=== PATIENT | female | born 1970 | race Caucasian/White ===

== ENCOUNTER 2018-10-25 07:09 | Emergency (ER) | payer OTHER ==
--- NOTE | 2018-10-25 07:48 | UC ---
Elbow Pain - HPI Summary HPI Summary: 2 DAYS OF WORSENING LEFT ELBOW PAIN. DENIES ANY INJURY OR TRAUMA. HAS BEEN DOING YOGA OVER THE PAST FEW WEEKS. HAS NOT DONE ANY HEAVY LIFTING AND DENIES ANY REPETITIVE MOTION AT WORK. - History of Current Complaint Chief Complaint: UCUpperExtremity Stated Complaint: ELBOW PAIN Time Seen by Provider: 10/25/18 07:13 Hx Obtained From: Patient Onset/Duration: Days Severity Initially: Moderate Severity Currently: Moderate Pain Intensity: 8 Pain Scale Used: 0-10 Numeric Location Of Pain: Is Discrete @ - LEFT ELBOW Character: Sharp Aggravating Factor(s): Movement Alleviating Factor(s): Rest, Immobilization Associated Signs And Symptoms: Positive: Negative - Allergies/Home Medications Allergies/Adverse Reactions: Allergies Allergy/AdvReac Type Severity Reaction Status Date / Time No Known Allergies Allergy Verified 10/25/18 07:20 Home Medications: Home Medications Niacin 100 mg PO DAILY 10/25/18 [History Confirmed 10/25/18] Vitamin B Complex CAP* [B Complex CAP*] 1 cap PO DAILY 10/25/18 [History Confirmed 10/25/18] PMH/Surg Hx/FS Hx/Imm Hx Previously Healthy: Yes - Surgical History Surgical History: Yes Surgery Procedure, Year, and Place: HYSTERECTOMY 2007 AND 2009 - Family History Known Family History: Positive: Non-Contributory - Social History Alcohol Use: None Substance Use Type: None Smoking Status (MU): Never Smoked Tobacco Review of Systems All Other Systems Reviewed And Are Negative: Yes Constitutional: Positive: Negative Skin: Positive: Negative Respiratory: Positive: Negative Cardiovascular: Positive: Negative Gastrointestinal: Positive: Negative Musculoskeletal: Positive: Arthralgia, Decreased ROM Physical Exam Triage Information Reviewed: Yes Appearance: Well-Appearing, No Pain Distress, Well-Nourished Vital Signs: Initial Vital Signs Temp 98.2 F 10/25/18 07:15 Pulse 69 10/25/18 07:15 Resp 20 10/25/18 07:15 BP 183/100 10/25/18 07:15 Pulse Ox 97 10/25/18 07:15 Vital Signs Reviewed: Yes Eyes: Positive: Conjunctiva Clear ENT: Positive: Hearing grossly normal Neck: Positive: Supple Respiratory: Positive: No respiratory distress, No accessory muscle use Cardiovascular: Positive: Pulses Normal Abdomen Description: Positive: Soft Musculoskeletal: Positive: No Edema, ROM Limited @ - LEFT ELBOW, Other: - EXQUISITELY TTP LEFT LATERAL EPICONDYLE Neurological: Positive: Alert Psychological: Positive: Age Appropriate Behavior Skin: Negative: Rashes Diagnostics - Radiology LEFT ELBOW XRAYS Radiology Interpretation Completed By: Radiologist Summary of Radiographic Findings: Lateral epicondylitis with calcific tendinopathy at the common extensor tendon origin Elbow Pain Course/Dx - Differential Dx/Diagnosis Provider Diagnosis: Lateral epicondylitis, left elbow Discharge ED - Sign-Out/Discharge Documenting (check all that apply): Patient Departure All imaging exams completed and their final reports reviewed: Yes - Discharge Plan Condition: Stable Disposition: HOME Prescriptions: Cyclobenzaprine TAB* [Flexeril TAB*] 10 mg PO BID PRN #30 tab PRN Reason: Pain Meloxicam [Mobic] 7.5 mg PO BID PRN #30 tab PRN Reason: Pain predniSONE TAB* [Deltasone 20 MG TAB*] 40 mg PO DAILY #10 tab Patient Education Materials: Tennis Elbow (ED) Referrals: Adriana Solorzano NP [Primary Care Provider] - If Needed Carlos A Slaughter MD [Medical Doctor] - 2 Weeks Additional Instructions: X-RAYS TODAY SHOW CHANGES CONSISTENT WITH LATERAL EPICONDYLITIS (TENNIS ELBOW) WITH SOME CALCIFICATIONS. GET A COUNTERFORCE BRACE AND REST YOUR ARM MUCH POSSIBLE. FOLLOW-UP WITH ORTHO TO DISCUSS FURTHER TREATMENT OPTIONS. TENNIS ELBOW/GOLFER'S ELBOW What is elbow tendinopathy? Elbow tendinopathy is a condition that causes elbow pain and forearm weakness. Doctors use the term "elbow tendinopathy" when people have a problem with a tendon in the elbow. Tendons are strong bands of tissue that connect muscles to bones. Depending on which elbow tendon is injured , the condition is also known as "tennis elbow" or "golf elbow." In most people with elbow tendinopathy, the tendons are not inflamed or swollen. If they do get inflamed or swollen, doctors call it "tendinitis." Tendinitis usually starts suddenly. Tendinopathy usually happens over a longer period of time. What causes elbow tendinopathy? This condition can happen as people get older , especially if they do a lot of work or activity using their elbow and forearm. Tendinitis can happen when people get hurt or do the same movements over and over. What are the symptoms of elbow tendinopathy? The most common symptoms are: -Elbow pain The pain can start slowly or suddenly. It can spread to the upper arm or forearm. -Weakness of the forearm muscles -Swelling (if people have tendinitis) Is there a test for elbow tendinopathy? No. But your doctor or nurse should be able to tell if you have it by talking with you and doing an exam. How is elbow tendinopathy treated? Most of the time, this condition will get better on its own, but it can take months to heal completely. To help get better , you can: -Rest your elbow and arm - Ask your doctor about wearing an arm brace. -Take a pain-relieving medicine - Your doctor might recommend that you take a medicine such as acetaminophen (sample brand name: Tylenol), ibuprofen (sample brand names: Advil, Motrin), or naproxen (sample brand names: Aleve, Naprosyn). Is there anything I can do on my own to feel better? Yes. You can do different exercises to help with your symptoms. The right exercises for you will depend on which elbow tendon is injured. The following exercises can help stretch the lower arm muscles: -Tennis elbow stretch Hold your injured arm straight out, and point your fingers down to the ground. Use your other hand (with the thumb pressing on the palm) to grab this hand. Then press down on the back of the hand to bend the wrist more (picture 1). Hold this position for 30 seconds. Repeat the stretch 3 times. Do this exercise 1 time a day. -Golf elbow stretch Stand an arm's length away from the wall, with the injured arm closest to the wall. Put your palm on the wall, with your fingers pointing down. Press gently against the wall to stretch your muscles. Hold this position for 30 seconds. Repeat the stretch 3 times. Do this exercise 1 time a day. Other types of exercises can help make the forearm muscles stronger. Your doctor , nurse, or physical therapist (exercise expert) can show you how to do these types of exercises. He or she will tell you when to start them and how often to do them. What if my symptoms don't get better? If your symptoms don't get better, talk with your doctor or nurse. He or she can suggest other treatments, such as physical therapy or a shot of medicine in the tendon. - Billing Disposition and Condition Condition: STABLE Disposition: Home
[2018-10-25 08:33] VITALS: BP 165/90
== END 2018-10-25 08:34 | disposition home or self-care (01) ==
LOC: UCEAST 07:09
DX: M77.12 Lateral epicondylitis, left elbow (principal)
CPT/HCPCS: 99212; G0463